=== PATIENT | female | born 1975 | race Caucasian/White ===

== ENCOUNTER 2017-07-22 12:01 | Inpatient (IN) | payer MEDICAID ==
[2017-07-22] MEDS: SOD CHLORIDE 0.9% 1,000 ML IV ×2 (16:17→21:45)
[2017-07-22 17:04] LABS: WHITE BLOOD COUNT 9.6 10^3/ul (4.8-10.8)
[2017-07-22 17:04] LABS: ABNORMAL IP MESSAGE 1; HEMATOCRIT 20.2 % (37.0-47.0); MEAN CORPUSCULAR HEMOGLOBIN 13.3 pg (29.0-33.0); MEAN CORPUSCULAR HGB CONC 22.8 g/dl (32.0-37.0); MEAN CORPUSCULAR VOLUME 58.4 fl (82.0-101.0); MEAN PLATELET VOLUME 9.8 fl (7.4-10.4); NUCLEATED RED BLOOD CELLS% 0.7 /100WBC (0.0-0.0); PLATELET COUNT 374 10^3/UL (140-415); RED BLOOD COUNT 3.46 10^6/ul (4.20-5.40); RED CELL DISTRIBUTION WIDTH 22.8 % (11.5-14.5)
[2017-07-22 17:10] LABS: ADD MAN DIFF? YES; HEMOGLOBIN 4.6 g/dl (12.0-16.0); POSITIVE DIFF @See below
[2017-07-22 17:22] LABS: INR 1.09; PARTIAL THROMBOPLASTIN TIME 28.8 Sec (25.0-35.0); PROTIME 14.2 Sec (11.9-14.9); PT RATIO 1.1
[2017-07-22 17:25] LABS: ALANINE AMINOTRANSFERASE 14 IU/L (13-69); ALBUMIN 4.2 g/dl (3.3-4.9); ALBUMIN/GLOBULIN RATIO 1.31; ALKALINE PHOSPHATASE 65 IU/L (42-121); ANION GAP 19 (8-16); ASPARTATE AMINO TRANSFERASE 15 IU/L (15-46); BILIRUBIN,INDIRECT 0.7 mg/dl (0-1.1); BILIRUBIN,TOTAL 0.7 mg/dl (0.2-1.3); BLOOD UREA NITROGEN 11 mg/dl (7-20); CALCIUM 9.1 mg/dl (8.4-10.2); CARBON DIOXIDE 23 mmol/L (21-31); CHLORIDE 98 mmol/L (97-110); CREATININE 0.51 mg/dl (0.44-1.00); GLUCOSE 293 mg/dl (70-220); POTASSIUM 4.1 mmol/L (3.5-5.1); SODIUM 136 mmol/L (135-144); TOTAL PROTEIN 7.4 g/dl (6.1-8.1)
[2017-07-22 17:56] LABS: ANISOCYTOSIS 3+ (0-0); EOSINOPHILS % (M) 2 % (0-7); HYPOCHROMASIA 3+ (0-0); LYMPHOCYTES #M 2.8 10^3/ul (0.8-2.9); LYMPHOCYTES % (M) 30 % (15-51); MICROCYTOSIS 3+ (0-0); MONOCYTE #M 0.5 10^3/ul (0.3-0.9); MONOCYTES % (M) 6 % (0-11); PLATELET MORPHOLOGY COMMENT @See below; POIKILOCYTOSIS 1+ (0-0); SEGMENTED NEUTROPHILS (M) % 62 % (39-77); SMUDGE%M 5 % (0-0)
[2017-07-22 18:01] LABS: PATH REVIEW? YES
[2017-07-22] MEDS ORDERED: ONDANSETRON 4 MG INJ IV (20:00)
[2017-07-22] MEDS ORDERED: ACETAMINOPHEN 325 MG TAB PO (20:00)
[2017-07-23] MEDS ORDERED: ALBUTEROL/IPRATROPIUM (NEB) 3 ML AMP HHN (01:30)
[2017-07-23] MEDS ORDERED: ONDANSETRON 4 MG INJ IV (01:30)
[2017-07-23] MEDS ORDERED: ACETAMINOPHEN 325 MG TAB PO (01:30)
[2017-07-23] MEDS ORDERED: morphine 2 MG INJ IV (01:30)
[2017-07-23] MEDS ORDERED: NACL 0.9% 3 ML SYG IV (01:30)
[2017-07-23] MEDS ORDERED: DEXTROSE 50% 50 ML SYRINGE IV ×2 (06:00)
[2017-07-23] MEDS ORDERED: GLUCOSE GEL 15 GRAM TUBE PO ×2 (06:00)
[2017-07-23] MEDS ORDERED: GLUCAGON 1 MG INJ IM (06:00)
[2017-07-23] MEDS ORDERED: GLUCOSE GEL 15 GRAM TUBE BUCCAL (06:00)
[2017-07-23] MEDS: LEVOTHYROXINE 75 MCG TAB PO (06:41)
[2017-07-23 08:12] LABS: ADD MAN DIFF? NO
[2017-07-23 08:13] LABS: WHITE BLOOD COUNT 7.8 10^3/ul (4.8-10.8)
[2017-07-23 08:13] LABS: ABNORMAL IP MESSAGE 1; BASOPHIL # 0.1 10^3/ul (0.0-0.1); BASOPHILS % 0.9 % (0.0-2.0); EOSINOPHILS # 0.1 10^3/ul (0.0-0.5); EOSINOPHILS % 1.5 % (0.0-7.0); HEMATOCRIT 25.6 % (37.0-47.0); LYMPHOCYTES # 1.6 10^3/ul (0.8-2.9); LYMPHOCYTES % 20.5 % (15.0-51.0); MEAN CORPUSCULAR HEMOGLOBIN 15.8 pg (29.0-33.0); MEAN CORPUSCULAR HGB CONC 25.4 g/dl (32.0-37.0); MEAN CORPUSCULAR VOLUME 62.1 fl (82.0-101.0); MONOCYTE # 0.6 10^3/ul (0.3-0.9); MONOCYTES % 8.1 % (0.0-11.0); NEUTROPHIL # 5.4 10^3/ul (1.6-7.5); NEUTROPHILS % 68.6 % (39.0-77.0); NUCLEATED RED BLOOD CELLS% 0.5 /100WBC (0.0-0.0); PLATELET COUNT 349 10^3/UL (140-415); RED BLOOD COUNT 4.12 10^6/ul (4.20-5.40); RED CELL DISTRIBUTION WIDTH 26.4 % (11.5-14.5)
[2017-07-23 08:35] LABS: HEMOGLOBIN 6.5 g/dl (12.0-16.0); POSITIVE DIFF @See below
[2017-07-23] MEDS: FAMOTIDINE 20 MG TAB PO ×2 (08:36→20:28)
[2017-07-23] MEDS: INSULIN GLARGINE [LANtus] 3 ML PEN SC (08:41)
[2017-07-23] MEDS: INSULIN ASPART [NOVOLOG] 3 ML PEN SC ×6 (08:41→20:23)
[2017-07-23 08:44] LABS: ALANINE AMINOTRANSFERASE 17 IU/L (13-69); ALBUMIN 3.9 g/dl (3.3-4.9); ALBUMIN/GLOBULIN RATIO 1.25; ALKALINE PHOSPHATASE 62 IU/L (42-121); ANION GAP 16 (8-16); ASPARTATE AMINO TRANSFERASE 23 IU/L (15-46); BILIRUBIN,INDIRECT 1.6 mg/dl (0-1.1); BILIRUBIN,TOTAL 1.6 mg/dl (0.2-1.3); BLOOD UREA NITROGEN 7 mg/dl (7-20); CARBON DIOXIDE 26 mmol/L (21-31); CHLORIDE 101 mmol/L (97-110); CREATININE 0.52 mg/dl (0.44-1.00); GLUCOSE 227 mg/dl (70-220); POTASSIUM 4.2 mmol/L (3.5-5.1); SODIUM 139 mmol/L (135-144)
[2017-07-23 08:49] LABS: IRON 18 ug/dl (35-150)
[2017-07-23 09:00] LABS: % IRON SATURATION 5 % SAT (22-52); TOTAL IRON BINDING CAPACITY 382 ug/dl (241-421)
[2017-07-23 11:41] LABS: HEMOGLOBIN A1C 7.4 % (0-5.9)
[2017-07-23 11:42] LABS: FREE T4 (FREE THYROXINE) 1.36 ng/dl (0.79-2.35)
[2017-07-23] MEDS: SOD CHLORIDE 0.9% 250 ML IV* (13:34)
[2017-07-23] MEDS: FUROSEMIDE 20 MG INJ IV (16:54)
[2017-07-23 20:15] LABS: IRON 17 ug/dl (35-150)
[2017-07-23 20:24] LABS: % IRON SATURATION 4 % SAT (22-52); TOTAL IRON BINDING CAPACITY 387 ug/dl (241-421)
[2017-07-23] MEDS: SOD FERRIC GLUC COMPLX 125 MG in SOD CHLORIDE 0.9% 100 ML IVPB (20:28)
[2017-07-24] MEDS: ACCU-CHEK XX (02:00)
[2017-07-24] MEDS: LEVOTHYROXINE 75 MCG TAB PO (06:11)
[2017-07-24] MEDS: FAMOTIDINE 20 MG TAB PO ×2 (08:54→21:13)
[2017-07-24] MEDS: POLYSACCHARIDE IRON COMPLEX CAP PO ×2 (08:54→21:13)
[2017-07-24] MEDS: DOCUSATE SODIUM 100 MG CAP PO ×2 (08:54→21:13)
[2017-07-24] MEDS: MEDROXYPROGESTERONE 10 MG TAB PO ×2 (08:54→21:13)
[2017-07-24] MEDS: INSULIN ASPART [NOVOLOG] 3 ML PEN SC ×7 (08:59→21:00)
[2017-07-24 09:00] LABS: ADD MAN DIFF? NO
[2017-07-24] MEDS: INSULIN GLARGINE [LANtus] 3 ML PEN SC (09:07)
[2017-07-24 09:09] LABS: WHITE BLOOD COUNT 6.7 10^3/ul (4.8-10.8)
[2017-07-24 09:09] LABS: ABNORMAL IP MESSAGE 1; BASOPHIL # 0.1 10^3/ul (0.0-0.1); BASOPHILS % 0.9 % (0.0-2.0); EOSINOPHILS # 0.1 10^3/ul (0.0-0.5); EOSINOPHILS % 1.6 % (0.0-7.0); HEMATOCRIT 32.2 % (37.0-47.0); HEMOGLOBIN 8.8 g/dl (12.0-16.0); LYMPHOCYTES # 1.1 10^3/ul (0.8-2.9); LYMPHOCYTES % 16.2 % (15.0-51.0); MEAN CORPUSCULAR HEMOGLOBIN 18.1 pg (29.0-33.0); MEAN CORPUSCULAR HGB CONC 27.3 g/dl (32.0-37.0); MEAN CORPUSCULAR VOLUME 66.3 fl (82.0-101.0); MONOCYTE # 0.6 10^3/ul (0.3-0.9); MONOCYTES % 8.2 % (0.0-11.0); NEUTROPHIL # 4.9 10^3/ul (1.6-7.5); NEUTROPHILS % 72.5 % (39.0-77.0); NUCLEATED RED BLOOD CELLS # 0.1 10^3/ul (0.0-0.0); PLATELET COUNT 317 10^3/UL (140-415); RED BLOOD COUNT 4.86 10^6/ul (4.20-5.40); RED CELL DISTRIBUTION WIDTH 28.2 % (11.5-14.5)
[2017-07-24 09:11] LABS: POSITIVE DIFF @See below
[2017-07-24 09:31] LABS: ANION GAP 14 (8-16); BLOOD UREA NITROGEN 11 mg/dl (7-20); CALCIUM 8.9 mg/dl (8.4-10.2); CARBON DIOXIDE 30 mmol/L (21-31); CHLORIDE 101 mmol/L (97-110); CREATININE 0.63 mg/dl (0.44-1.00); GLUCOSE 170 mg/dl (70-220); MAGNESIUM 1.7 mg/dl (1.7-2.5); POTASSIUM 3.5 mmol/L (3.5-5.1); SODIUM 141 mmol/L (135-144)
[2017-07-24] MEDS ORDERED: SOD CHLORIDE 0.9% 250 ML IV* (11:10)
[2017-07-24 14:51] LABS: AHG CROSSMATCH 1 5
[2017-07-24] MEDS: SOD FERRIC GLUC COMPLX 125 MG in SOD CHLORIDE 0.9% 100 ML IVPB (21:02)
[2017-07-25] MEDS: ACCU-CHEK XX (01:33)
[2017-07-25] MEDS: LEVOTHYROXINE 75 MCG TAB PO (06:05)
[2017-07-25 06:52] LABS: ADD MAN DIFF? NO
[2017-07-25 07:00] LABS: ABNORMAL IP MESSAGE 1; BASOPHIL # 0.1 10^3/ul (0.0-0.1); BASOPHILS % 0.7 % (0.0-2.0); EOSINOPHILS # 0.2 10^3/ul (0.0-0.5); EOSINOPHILS % 2.4 % (0.0-7.0); HEMATOCRIT 32.8 % (37.0-47.0); HEMOGLOBIN 9.2 g/dl (12.0-16.0); LYMPHOCYTES # 1.3 10^3/ul (0.8-2.9); LYMPHOCYTES % 16.2 % (15.0-51.0); MEAN CORPUSCULAR VOLUME 67.6 fl (82.0-101.0); MONOCYTE # 0.8 10^3/ul (0.3-0.9); MONOCYTES % 9.4 % (0.0-11.0); NEUTROPHIL # 5.9 10^3/ul (1.6-7.5); NEUTROPHILS % 70.7 % (39.0-77.0); NUCLEATED RED BLOOD CELLS # 0.1 10^3/ul (0.0-0.0); NUCLEATED RED BLOOD CELLS% 0.7 /100WBC (0.0-0.0); PLATELET COUNT 271 10^3/UL (140-415); RED BLOOD COUNT 4.85 10^6/ul (4.20-5.40); RED CELL DISTRIBUTION WIDTH 30.3 % (11.5-14.5)
[2017-07-25 07:00] LABS: WHITE BLOOD COUNT 8.3 10^3/ul (4.8-10.8)
[2017-07-25 07:01] LABS: POSITIVE DIFF @See below
[2017-07-25] MEDS: INSULIN ASPART [NOVOLOG] 3 ML PEN SC ×4 (08:31→12:56)
[2017-07-25] MEDS: INSULIN GLARGINE [LANtus] 3 ML PEN SC (08:33)
[2017-07-25] MEDS: DOCUSATE SODIUM 100 MG CAP PO (09:59)
[2017-07-25] MEDS: POLYSACCHARIDE IRON COMPLEX CAP PO (10:00)
[2017-07-25] MEDS: FAMOTIDINE 20 MG TAB PO (10:00)
[2017-07-25] MEDS: MEDROXYPROGESTERONE 10 MG TAB PO (10:00)
== END 2017-07-25 14:55 | disposition home or self-care (01) | DRG 812 ==
LOC: E/R 12:01 → TEL 20:05
PROC: 30233N1 Transfusion of Nonautologous Red Blood Cells into Peripheral Vein, Percutaneous Approach (ICD-10-PCS; principal; 2017-07-22)
DX: D50.9 Iron deficiency anemia, unspecified (principal); E11.65 Type 2 diabetes mellitus with hyperglycemia; N92.0 Excessive and frequent menstruation with regular cycle; E03.9 Hypothyroidism, unspecified; E66.9 Obesity, unspecified; Z68.36 Body mass index [BMI] 36.0-36.9, adult; Z79.84 Long term (current) use of oral hypoglycemic drugs
CPT/HCPCS: 36430; 71045; 76830; 76856; 80048; 80053; 82728; 82962; 83036; 83540; 83735; 84100; 84439; 84443; 85025; 85610; 85730; 86850; 86870; 86900; 86901; 86920; J1940

== ENCOUNTER 2017-12-23 16:23 | Inpatient (IN) | payer MEDICAID ==
[2017-12-23 18:29] LABS: AADO2 Venous 83.5 mmHg; MODE ROOM AIR; Sample Type Blood venous; Site OTHER; Venous COHb 0.1 %; Venous Oxygen Sat 25.5 mmHG (55.0-75.0); Venous Total Hemglobin 5.7 g/dl
[2017-12-23 18:34] LABS: ADD MAN DIFF? NO
[2017-12-23 18:45] LABS: ABNORMAL IP MESSAGE 1; MEAN CORPUSCULAR HEMOGLOBIN 13.1 pg (29.0-33.0); MEAN CORPUSCULAR HGB CONC 22.3 g/dl (32.0-37.0); MEAN CORPUSCULAR VOLUME 58.7 fl (82.0-101.0); MEAN PLATELET VOLUME 10.2 fl (7.4-10.4); NUCLEATED RED BLOOD CELLS% 0.5 /100WBC (0.0-0.0); PLATELET COUNT 409 10^3/UL (140-415); RED BLOOD COUNT 3.75 10^6/ul (4.20-5.40); RED CELL DISTRIBUTION WIDTH 23.4 % (11.5-14.5)
[2017-12-23 18:45] LABS: WHITE BLOOD COUNT 10.4 10^3/ul (4.8-10.8)
[2017-12-23 18:49] LABS: ADD UMIC YES; UR ASCORBIC ACID NEGATIVE (NEGATIVE); UR BACTERIA FEW /HPF (NONE SEEN); UR BILIRUBIN (Dip) NEGATIVE (NEGATIVE); UR BLOOD (Dip) NEGATIVE (NEGATIVE); UR CLARITY SLIGHTLY CLOUDY (CLEAR); UR COLOR YELLOW (YELLOW); UR GLUCOSE (Dip) 3+ mg/dL (NEGATIVE); UR KETONES (Dip) NEGATIVE (NEGATIVE); UR LEUKOCYTE ESTERASE (Dip) TRACE Leu/ul (NEGATIVE); UR NITRITE (Dip) NEGATIVE (NEGATIVE); UR RBC 1 /HPF (0-5); UR SPECIFIC GRAVITY (Dip) 1.025 (1.003-1.030); UR SQUAMOUS EPITHELIAL CELL FEW /HPF (FEW); UR TOTAL PROTEIN (Dip) NEGATIVE (NEGATIVE); UR UROBILINOGEN (Dip) NEGATIVE (NEGATIVE); UR WBC 1 /HPF (0-5)
[2017-12-23] MEDS: SOD CHLORIDE 0.9% 960 ML IV (18:54)
[2017-12-23 18:57] LABS: POSITIVE DIFF @See below
[2017-12-23 19:01] LABS: HEMOGLOBIN 4.9 g/dl (12.0-16.0)
[2017-12-23 19:03] LABS: ALBUMIN 4.5 g/dl (3.3-4.9); ALKALINE PHOSPHATASE 54 IU/L (42-121); ANION GAP 16 (8-16); ASPARTATE AMINO TRANSFERASE 15 IU/L (15-46); BILIRUBIN,INDIRECT 0.8 mg/dl (0-1.1); BILIRUBIN,TOTAL 0.8 mg/dl (0.2-1.3); BLOOD UREA NITROGEN 9 mg/dl (7-20); CALCIUM 9.1 mg/dl (8.4-10.2); CARBON DIOXIDE 22 mmol/L (21-31); CHLORIDE 105 mmol/L (97-110); CREATININE 0.54 mg/dl (0.44-1.00); GLUCOSE 256 mg/dl (70-220); POTASSIUM 3.9 mmol/L (3.5-5.1); SODIUM 139 mmol/L (135-144); TOTAL PROTEIN 7.7 g/dl (6.1-8.1)
[2017-12-23 19:04] LABS: ALANINE AMINOTRANSFERASE < 6 IU/L (13-69)
[2017-12-23] MEDS ORDERED: ONDANSETRON 4 MG INJ IV ×2 (19:30→23:30)
[2017-12-23] MEDS ORDERED: ACETAMINOPHEN 325 MG TAB PO (19:30)
[2017-12-23 19:36] LABS: ANISOCYTOSIS 3+ (0-0); BASOPHIL #M 0.1 10^3/ul (0.0-0.0); BASOPHILS % (M) 1 % (0-2); ERYTHROBLAST% (NRBC) (M) 1 % (0-0); GIANT THROMBO% (M) 2 % (0-0); HYPOCHROMASIA 3+ (0-0); LYMPHOCYTES #M 1.6 10^3/ul (0.8-2.9); LYMPHOCYTES % (M) 16 % (15-51); MICROCYTOSIS 3+ (0-0); MONOCYTE #M 0.2 10^3/ul (0.3-0.9); MONOCYTES % (M) 2 % (0-11); OVALOCYTES 1+ (0-0); PLATELET ESTIMATE NORMAL; POIKILOCYTOSIS 1+ (0-0); POLYCHROMASIA 1+ (0-0); SEGMENTED NEUTROPHILS (M) % 81 % (39-77); SMUDGE%M 2 % (0-0)
[2017-12-23 23:51] LABS: IRON < 10 ug/dl (35-150)
[2017-12-23 23:54] LABS: TOTAL IRON BINDING CAPACITY 420 ug/dl (241-421)
[2017-12-24 00:21] LABS: FERRITIN 3.3 ng/ml (6.2-137.0)
[2017-12-24] MEDS: SOD CHLORIDE 0.9% 250 ML IV (01:00)
[2017-12-24] MEDS ORDERED: GLUCOSE GEL 15 GRAM TUBE BUCCAL (07:00)
[2017-12-24] MEDS ORDERED: GLUCOSE GEL 15 GRAM TUBE PO ×2 (07:00)
[2017-12-24] MEDS ORDERED: GLUCAGON 1 MG INJ IM (07:00)
[2017-12-24] MEDS ORDERED: DEXTROSE 50% 50 ML SYRINGE IV ×2 (07:00)
[2017-12-24] MEDS: metFORMIN 500 MG TAB PO ×2 (08:30→18:09)
[2017-12-24] MEDS: LEVOTHYROXINE 75 MCG TAB PO (09:31)
[2017-12-24] MEDS: INSULIN ASPART [NOVOLOG] 3 ML PEN SC ×4 (09:36→21:00)
[2017-12-24 12:08] LABS: FREE T4 (FREE THYROXINE) 1.16 ng/dl (0.64-1.79)
[2017-12-24 16:47] LABS: ABNORMAL IP MESSAGE 1; HEMATOCRIT 24.6 % (37.0-47.0); MEAN CORPUSCULAR HEMOGLOBIN 16.1 pg (29.0-33.0); MEAN CORPUSCULAR HGB CONC 25.2 g/dl (32.0-37.0); MEAN CORPUSCULAR VOLUME 63.7 fl (82.0-101.0); MEAN PLATELET VOLUME 10.3 fl (7.4-10.4); NUCLEATED RED BLOOD CELLS% 0.6 /100WBC (0.0-0.0); PLATELET COUNT 321 10^3/UL (140-415); RED BLOOD COUNT 3.86 10^6/ul (4.20-5.40); RED CELL DISTRIBUTION WIDTH 28.8 % (11.5-14.5)
[2017-12-24 16:47] LABS: WHITE BLOOD COUNT 8.2 10^3/ul (4.8-10.8)
[2017-12-24 16:54] LABS: ADD MAN DIFF? YES; HEMOGLOBIN 6.2 g/dl (12.0-16.0); POSITIVE DIFF @See below
[2017-12-24] MEDS ORDERED: SOD FERRIC GLUC COMPLX 125 MG in SOD CHLORIDE 0.9% 100 ML IVPB (17:00)
[2017-12-24 18:14] LABS: ANISOCYTOSIS 3+ (0-0); EOSINOPHILS % (M) 2 % (0-7); ERYTHROBLAST% (NRBC) (M) 2 % (0-0); HYPOCHROMASIA 2+ (0-0); LYMPHOCYTES #M 1.4 10^3/ul (0.8-2.9); LYMPHOCYTES % (M) 18 % (15-51); MICROCYTOSIS 3+ (0-0); MONOCYTE #M 0.1 10^3/ul (0.3-0.9); MONOCYTES % (M) 2 % (0-11); PLATELET MORPHOLOGY COMMENT @See below; POIKILOCYTOSIS 1+ (0-0); POLYCHROMASIA 1+ (0-0); SEGMENTED NEUTROPHILS (M) % 78 % (39-77); SMUDGE%M 6 % (0-0)
[2017-12-24] MEDS: DOCUSATE SODIUM 100 MG CAP PO (21:16)
[2017-12-24] MEDS: FERROUS SULFATE (EC) 325 MG TAB PO (21:16)
[2017-12-24] MEDS: ACETAMINOPHEN 325 MG TAB PO (22:04)
[2017-12-25] MEDS: ACCU-CHEK XX (02:00)
[2017-12-25 05:42] LABS: ADD MAN DIFF? NO
[2017-12-25 06:01] LABS: WHITE BLOOD COUNT 6.9 10^3/ul (4.8-10.8)
[2017-12-25 06:01] LABS: ABNORMAL IP MESSAGE 1; BASOPHILS % 0.6 % (0.0-2.0); EOSINOPHILS # 0.2 10^3/ul (0.0-0.5); EOSINOPHILS % 2.2 % (0.0-7.0); LYMPHOCYTES # 1.5 10^3/ul (0.8-2.9); MEAN CORPUSCULAR HGB CONC 25.8 g/dl (32.0-37.0); MEAN PLATELET VOLUME 10.3 fl (7.4-10.4); MONOCYTE # 0.6 10^3/ul (0.3-0.9); MONOCYTES % 8.3 % (0.0-11.0); NEUTROPHIL # 4.6 10^3/ul (1.6-7.5); NEUTROPHILS % 66.6 % (39.0-77.0); NUCLEATED RED BLOOD CELLS # 0.1 10^3/ul (0.0-0.0); NUCLEATED RED BLOOD CELLS% 0.9 /100WBC (0.0-0.0); PLATELET COUNT 322 10^3/UL (140-415); RED BLOOD COUNT 3.94 10^6/ul (4.20-5.40); RED CELL DISTRIBUTION WIDTH 28.9 % (11.5-14.5)
[2017-12-25 06:15] LABS: POSITIVE DIFF @See below
[2017-12-25 06:17] LABS: HEMOGLOBIN 6.7 g/dl (12.0-16.0)
[2017-12-25 06:34] LABS: ANION GAP 14 (8-16); BLOOD UREA NITROGEN 9 mg/dl (7-20); CALCIUM 8.6 mg/dl (8.4-10.2); CARBON DIOXIDE 23 mmol/L (21-31); CHLORIDE 105 mmol/L (97-110); CREATININE 0.58 mg/dl (0.44-1.00); GLUCOSE 151 mg/dl (70-220); MAGNESIUM 1.6 mg/dl (1.7-2.5); POTASSIUM 3.6 mmol/L (3.5-5.1); SODIUM 138 mmol/L (135-144)
[2017-12-25 06:40] LABS: AHG CROSSMATCH 1 7
[2017-12-25] MEDS: LEVOTHYROXINE 75 MCG TAB PO (06:51)
[2017-12-25] MEDS: metFORMIN 500 MG TAB PO ×2 (08:48→17:16)
[2017-12-25] MEDS: FERROUS SULFATE (EC) 325 MG TAB PO ×3 (08:48→21:11)
[2017-12-25] MEDS: DOCUSATE SODIUM 100 MG CAP PO ×2 (08:48→21:00)
[2017-12-25] MEDS: ASCORBIC ACID 500 MG TAB PO (08:48)
[2017-12-25] MEDS: INSULIN ASPART [NOVOLOG] 3 ML PEN SC ×4 (10:25→21:00)
[2017-12-25] MEDS: glipiZIDE 5 MG TAB PO ×2 (12:00→17:31)
[2017-12-25] MEDS: MAGNESIUM SULFATE 1 GM/D5W 100 ML IVPB (15:10)
[2017-12-26] MEDS: ACCU-CHEK XX (01:22)
[2017-12-26 06:12] LABS: ADD MAN DIFF? NO
[2017-12-26 06:18] LABS: ABNORMAL IP MESSAGE 1; BASOPHILS % 0.5 % (0.0-2.0); EOSINOPHILS # 0.2 10^3/ul (0.0-0.5); EOSINOPHILS % 2.9 % (0.0-7.0); HEMATOCRIT 30.1 % (37.0-47.0); HEMOGLOBIN 8.4 g/dl (12.0-16.0); LYMPHOCYTES # 1.5 10^3/ul (0.8-2.9); LYMPHOCYTES % 19.9 % (15.0-51.0); MEAN CORPUSCULAR HGB CONC 27.9 g/dl (32.0-37.0); MEAN CORPUSCULAR VOLUME 68.3 fl (82.0-101.0); MEAN PLATELET VOLUME 10.1 fl (7.4-10.4); MONOCYTE # 0.6 10^3/ul (0.3-0.9); MONOCYTES % 8.4 % (0.0-11.0); NEUTROPHILS % 67.8 % (39.0-77.0); NUCLEATED RED BLOOD CELLS% 0.5 /100WBC (0.0-0.0); PLATELET COUNT 306 10^3/UL (140-415); RED BLOOD COUNT 4.41 10^6/ul (4.20-5.40); RED CELL DISTRIBUTION WIDTH 30.5 % (11.5-14.5)
[2017-12-26 06:18] LABS: WHITE BLOOD COUNT 7.4 10^3/ul (4.8-10.8)
[2017-12-26] MEDS: glipiZIDE 5 MG TAB PO (06:19)
[2017-12-26] MEDS: LEVOTHYROXINE 75 MCG TAB PO (06:19)
[2017-12-26 06:25] LABS: POSITIVE DIFF @See below
[2017-12-26 06:51] LABS: ANION GAP 13 (8-16); BLOOD UREA NITROGEN 10 mg/dl (7-20); CALCIUM 8.8 mg/dl (8.4-10.2); CARBON DIOXIDE 25 mmol/L (21-31); CHLORIDE 106 mmol/L (97-110); CREATININE 0.54 mg/dl (0.44-1.00); GLUCOSE 88 mg/dl (70-220); POTASSIUM 3.6 mmol/L (3.5-5.1); SODIUM 140 mmol/L (135-144)
[2017-12-26] MEDS: INSULIN ASPART [NOVOLOG] 3 ML PEN SC ×2 (08:00→12:00)
[2017-12-26] MEDS: metFORMIN 500 MG TAB PO (08:42)
[2017-12-26] MEDS: FERROUS SULFATE (EC) 325 MG TAB PO ×2 (08:42→12:53)
[2017-12-26] MEDS: ASCORBIC ACID 500 MG TAB PO (08:42)
[2017-12-26] MEDS: DOCUSATE SODIUM 100 MG CAP PO (08:42)
== END 2017-12-26 13:49 | disposition home or self-care (01) | DRG 812 ==
LOC: 6WM 12-24 10:02 → E/R 16:23 → 6WM 22:37 → MS4 19:26
PROVIDERS: Internal Medicine
PROC: 30233N1 Transfusion of Nonautologous Red Blood Cells into Peripheral Vein, Percutaneous Approach (ICD-10-PCS; principal; 2017-12-24)
DX: D64.9 Anemia, unspecified (principal); N93.8 Other specified abnormal uterine and vaginal bleeding; E03.9 Hypothyroidism, unspecified; E11.65 Type 2 diabetes mellitus with hyperglycemia; N83.201 Unspecified ovarian cyst, right side; E66.9 Obesity, unspecified; Z68.37 Body mass index [BMI] 37.0-37.9, adult; N92.0 Excessive and frequent menstruation with regular cycle
CPT/HCPCS: 36415; 36430; 76830; 76856; 80048; 80053; 81001; 81025; 82728; 82803; 82962; 83036; 83540; 83735; 84439; 84443; 85025; 86644; 86850; 86870; 86900; 86901; 86920; 99291-25

== ENCOUNTER 2018-05-12 17:44 | Inpatient (IN) | payer MEDICAID ==
[2018-05-12] MEDS: SOD CHLORIDE 0.9% 1,000 ML IV (23:58)
[2018-05-12 23:59] LABS: ADD MAN DIFF? NO
[2018-05-13 00:05] LABS: WHITE BLOOD COUNT 11.5 10^3/ul (4.8-10.8)
[2018-05-13 00:05] LABS: ABNORMAL IP MESSAGE 1; BASOPHILS % 0.3 % (0.0-2.0); EOSINOPHILS # 0.1 10^3/ul (0.0-0.5); EOSINOPHILS % 0.6 % (0.0-7.0); HEMATOCRIT 20.7 % (37.0-47.0); LYMPHOCYTES # 1.3 10^3/ul (0.8-2.9); MEAN CORPUSCULAR HEMOGLOBIN 13.4 pg (29.0-33.0); MEAN CORPUSCULAR HGB CONC 23.2 g/dl (32.0-37.0); MEAN PLATELET VOLUME 9.9 fl (7.4-10.4); MONOCYTE # 0.8 10^3/ul (0.3-0.9); MONOCYTES % 7.3 % (0.0-11.0); NEUTROPHIL # 9.2 10^3/ul (1.6-7.5); NEUTROPHILS % 80.3 % (39.0-77.0); NUCLEATED RED BLOOD CELLS% 0.3 /100WBC (0.0-0.0); PLATELET COUNT 397 10^3/UL (140-415); RED BLOOD COUNT 3.57 10^6/ul (4.20-5.40); RED CELL DISTRIBUTION WIDTH 22.4 % (11.5-14.5); RETICULOCYTE COUNT # 0.086 X10^6 (0.020-0.110); RETICULOCYTE COUNT % 2.4 % (0.5-1.5); RETICULOCYTE RBC 3.57
[2018-05-13 00:09] LABS: HEMOGLOBIN 4.8 g/dl (12.0-16.0); POSITIVE DIFF @See below
[2018-05-13 00:20] LABS: IRON 15 ug/dl (35-150)
[2018-05-13 00:21] LABS: ALANINE AMINOTRANSFERASE 13 IU/L (13-69); ALBUMIN 4.1 g/dl (3.3-4.9); ALBUMIN/GLOBULIN RATIO 1.51; ALKALINE PHOSPHATASE 55 IU/L (42-121); ANION GAP 13 (5-13); ASPARTATE AMINO TRANSFERASE 14 IU/L (15-46); BILIRUBIN,INDIRECT 1.2 mg/dl (0-1.1); BILIRUBIN,TOTAL 1.2 mg/dl (0.2-1.3); BLOOD UREA NITROGEN 10 mg/dl (7-20); CARBON DIOXIDE 25 mmol/L (21-31); CHLORIDE 99 mmol/L (97-110); CREATININE 0.58 mg/dl (0.44-1.00); Estimated GFR > 60 mL/min (>60); GLUCOSE 152 mg/dl (70-220); LACTATE DEHYDROGENASE 251 IU/L (313-618); SODIUM 137 mmol/L (135-144); TOTAL PROTEIN 6.8 g/dl (6.1-8.1)
[2018-05-13 00:29] LABS: % IRON SATURATION 4 % SAT (22-52); TOTAL IRON BINDING CAPACITY 398 ug/dl (241-421)
[2018-05-13 03:27] LABS: AHG CROSSMATCH 1 5
[2018-05-13] MEDS ORDERED: NACL 0.9% 3 ML SYG IV (07:30)
[2018-05-13] MEDS ORDERED: ONDANSETRON 4 MG INJ IV (07:30)
[2018-05-13] MEDS ORDERED: ALBUTEROL/IPRATROPIUM (NEB) 3 ML AMP HHN (07:30)
[2018-05-13] MEDS: DOCUSATE SODIUM 100 MG CAP PO (09:20)
[2018-05-13] MEDS: FERROUS SULFATE (EC) 325 MG TAB PO ×2 (09:20→13:00)
[2018-05-13] MEDS: metFORMIN 500 MG TAB PO ×2 (09:20→18:18)
[2018-05-13] MEDS: ACETAMINOPHEN 325 MG TAB PO ×2 (09:21→14:46)
[2018-05-13] MEDS: ASCORBIC ACID 500 MG TAB PO (09:21)
[2018-05-13] MEDS ORDERED: DIPHENHYDRAMINE 50 MG INJ (14:27)
[2018-05-13] MEDS ORDERED: morphine 2 MG INJ IV (14:32)
[2018-05-13] MEDS: DIPHENHYDRAMINE 50 MG INJ IV (14:45)
[2018-05-13] MEDS: morphine 4 MG/ML VIAL IV (15:40)
[2018-05-13 15:49] LABS: ADD MAN DIFF? NO
[2018-05-13 15:52] LABS: WHITE BLOOD COUNT 14.3 10^3/ul (4.8-10.8)
[2018-05-13 15:52] LABS: ABNORMAL IP MESSAGE 1; BASOPHIL # 0.1 10^3/ul (0.0-0.1); BASOPHILS % 0.6 % (0.0-2.0); EOSINOPHILS % 0.3 % (0.0-7.0); HEMATOCRIT 28.5 % (37.0-47.0); HEMOGLOBIN 7.6 g/dl (12.0-16.0); LYMPHOCYTES # 0.4 10^3/ul (0.8-2.9); LYMPHOCYTES % 2.8 % (15.0-51.0); MEAN CORPUSCULAR HEMOGLOBIN 16.9 pg (29.0-33.0); MEAN CORPUSCULAR HGB CONC 26.7 g/dl (32.0-37.0); MEAN CORPUSCULAR VOLUME 63.5 fl (82.0-101.0); MEAN PLATELET VOLUME 9.6 fl (7.4-10.4); MONOCYTE # 0.5 10^3/ul (0.3-0.9); MONOCYTES % 3.3 % (0.0-11.0); NEUTROPHIL # 13.1 10^3/ul (1.6-7.5); NEUTROPHILS % 92.1 % (39.0-77.0); NUCLEATED RED BLOOD CELLS # 0.7 10^3/ul (0.0-0.0); NUCLEATED RED BLOOD CELLS% 4.7 /100WBC (0.0-0.0); PLATELET COUNT 284 10^3/UL (140-415); RED BLOOD COUNT 4.49 10^6/ul (4.20-5.40); RED CELL DISTRIBUTION WIDTH 27.9 % (11.5-14.5)
[2018-05-13 15:54] LABS: POSITIVE DIFF @See below
[2018-05-13 16:38] LABS: ALANINE AMINOTRANSFERASE 8 IU/L (13-69); ALBUMIN 4.1 g/dl (3.3-4.9); ALBUMIN/GLOBULIN RATIO 1.51; ALKALINE PHOSPHATASE 63 IU/L (42-121); ANION GAP 15 (5-13); ASPARTATE AMINO TRANSFERASE 24 IU/L (15-46); BILIRUBIN,INDIRECT 3.9 mg/dl (0-1.1); BILIRUBIN,TOTAL 3.9 mg/dl (0.2-1.3); BLOOD UREA NITROGEN 11 mg/dl (7-20); CALCIUM 9.2 mg/dl (8.4-10.2); CARBON DIOXIDE 23 mmol/L (21-31); CHLORIDE 101 mmol/L (97-110); CREATININE 0.55 mg/dl (0.44-1.00); Estimated GFR > 60 mL/min (>60); GLUCOSE 117 mg/dl (70-220); POTASSIUM 3.6 mmol/L (3.5-5.1); SODIUM 139 mmol/L (135-144); TOTAL PROTEIN 6.8 g/dl (6.1-8.1)
[2018-05-13 16:38] LABS: HEMOGLOBIN A1C 6.7 % (0-5.9)
[2018-05-13 18:23] LABS: PRETRANSFUSION BILIRUBIN 0.8 mg/dl
[2018-05-13 18:24] LABS: POST-TRANSFUSION BILIRUBIN 3.7 mg/dl
[2018-05-14] MEDS ORDERED: LEVOTHYROXINE 75 MCG TAB PO (07:00)
== END 2018-05-13 19:27 | disposition home or self-care (01) | DRG 812 ==
LOC: E/R 17:44 → 6WM 05-13 01:27
PROVIDERS: Internal Medicine; Pediatrics
DX: D64.9 Anemia, unspecified (principal); N92.0 Excessive and frequent menstruation with regular cycle; N93.8 Other specified abnormal uterine and vaginal bleeding; E11.9 Type 2 diabetes mellitus without complications; E03.9 Hypothyroidism, unspecified; E66.09 Other obesity due to excess calories; D25.9 Leiomyoma of uterus, unspecified; Z79.84 Long term (current) use of oral hypoglycemic drugs
CPT/HCPCS: 36430; 80053; 81025; 83036; 83540; 83615; 85025; 85045; 86078; 86850; 86900; 86901; 86920; 99285-25